=== PATIENT | female | born 1965 | race Native Hawaiian/Other Pacific Islander ===

== ENCOUNTER 2016-05-13 22:26 | Emergency (ER) | payer SELFPAY ==
[~2016-05-13] VITALS: Ht 157.5 cm; Wt 80.0 kg
[~2016-05-13 22:26] MED LIST: IBUP800T23 PO; LOVA10TA PO; METO25 PO; NORV10TA PO; PROC60TA PO
[2016-05-13 22:28] VITALS: BP 131/81; PULSE 86; RESP 16; TEMP 97.4; O2SAT 99
[2016-05-14] MEDS ORDERED: LOVA10TA PO (00:02)
[2016-05-14] MEDS ORDERED: NIFE15TA PO (00:02)
[2016-05-14] MEDS ORDERED: METO25TA3 PO (00:02)
[2016-05-14] MEDS ORDERED: AMLO10 PO (00:02)
--- NOTE | 2016-05-14 01:14 | PD ---
HPI Chief Complaint: GI Complaint Time Seen by Provider: 00:34 Travel History International Travel<30 days: No Contact w/Intl Traveler<30days: No Traveled to known affect area: No History of Present Illness HPI Patient 50-year-old female presents with one episode of nausea and vomiting. Patient chief complaint to me is that she thinks "I had too much to drink". Patient is a coming by her friend. She states that she had a whole bottle of champagne by herself tonight she is a doesn't do that. On my physical exam now she states that her nausea is resolved and wants to go home. Denies any bright red blood per rectum, no hematemesis. No fevers. No abdominal pain. PFSH Past Medical History Cancer: No Cardiovascular Problems: Yes (HTN) Diminished Hearing: No Endocrine: No Genitourinary: No Hypertension: Yes Immune Disorder: No Musculoskeletal: No Neurologic: No Psychiatric: No Reproductive: No Respiratory: No ?: Not : 2 Para: 2 Past Surgical History Hysterectomy: Yes Other Surgery: No Social History Alcohol Use: Yes (OCC) Tobacco Use: No Substance Use: No Allergies-Medications (Allergen,Severity, Reaction): Coded Allergies: No Known Allergies (Unverified , 05/13/16) Reported Meds & Prescriptions Reported Meds & Active Scripts Active Reported Lovastatin 10 Mg Tab 10 Mg PO HS Norvasc (Amlodipine Besylate) 10 Mg Tab 10 Mg PO DAILY Nifedical XL (Nifedipine) 60 Mg Tab 60 Mg PO DAILY Metoprolol Tartrate 25 Mg Tab 25 Mg PO BID Review of Systems Except as stated in HPI: all other systems reviewed are Neg Physical Exam Narrative GENERAL: Well-nourished, well-developed patient. SKIN: Warm and dry. HEAD: Normocephalic. EYES: No scleral icterus. No injection or drainage. NECK: Supple, trachea midline. No JVD or lymphadenopathy. CARDIOVASCULAR: Regular rate and rhythm without murmurs, gallops, or rubs. RESPIRATORY: Breath sounds equal bilaterally. No accessory muscle use. GASTROINTESTINAL: Abdomen soft, non-tender, nondistended. MUSCULOSKELETAL: No cyanosis, or edema. BACK: Nontender without obvious deformity. No CVA tenderness. Data Data Last Documented VS Vital Signs Date Time Temp Pulse Resp B/P Pulse Ox O2 Delivery O2 Flow Rate FiO2 05/13/16 23:58 16 05/13/16 22:28 97.4 86 131/81 99 Room Air [facility] Medical Decision Making Medical Screen Exam Complete: Yes Emergency Medical Condition: Yes Differential Diagnosis Alcohol intoxication, nausea, vomiting, pancreatitis unlikely, acute abdomen unlikely. Narrative Course Patient was roomed emergency department, she appears well and in no apparent distress. Patient has her who is at the bedside and is clinically sober and wants to take her home. Have no objections that this at this time. Her abdomen is soft and benign and she appears well. She is discharged into her 's care. Diagnosis Primary Impression: Alcohol intoxication Qualified Code: F10.129 - Alcohol intoxication, with unspecified complication Disposition: DISCHARGE HOME Condition: Stable Jaylen He MD May 14, 2016 01:14
[2016-06-07] MEDS ORDERED: AMLO10 PO ×2 (11:37→11:38)
[2016-08-15] MEDS ORDERED: NIFE15TA PO (09:14)
[2016-08-24] MEDS ORDERED: NIFE15TA PO (12:09)
[2016-09-08] MEDS ORDERED: NIFE15TA PO ×2 (10:32→10:35)
[2016-09-08] MEDS ORDERED: AMLO10 PO (10:32)
[2016-09-08] MEDS ORDERED: LOVA10TA PO ×2 (10:36→10:37)
[2016-10-07] MEDS ORDERED: LOVA10TA PO (07:44)
[2016-10-21] MEDS ORDERED: METO25TA3 PO (12:47)
== END 2016-05-14 01:30 | disposition home or self-care (01) ==
LOC: NEPC 22:26
DX: F10.129 Alcohol abuse with intoxication, unspecified (principal)
CPT/HCPCS: 99283